=== PATIENT | female | born 1955 | race Caucasian/White ===

== ENCOUNTER 2017-04-29 04:28 | Emergency (ER) | payer OTHER ==
[~2017-04-29] VITALS: Ht 162.6 cm; Wt 99.2 kg
[~2017-04-29 04:28] MED LIST: FLEXERIL10 MG PO; LEVOTHYROXINE; LEVOTHYROXINE150 MCG PO; MOTRIN600 MG PO; NAPROXEN500 MG PO; PROZAC; PROZAC20 MG PO; SIMVASTATIN20 MG PO
[2017-04-29] MEDS ORDERED: KEFLEX500 MG PO (05:07)
[2017-04-29 05:16] VITALS: BP 159/66
== END 2017-04-29 05:17 | disposition home or self-care (01) ==
LOC: EME 04:28
DX: S50.812A Abrasion of left forearm, initial encounter (principal); L03.114 Cellulitis of left upper limb; X58.XXXA Exposure to other specified factors, initial encounter; E78.5 Hyperlipidemia, unspecified; Z88.0 Allergy status to penicillin; F17.200 Nicotine dependence, unspecified, uncomplicated
CPT/HCPCS: 99281; 99283

== ENCOUNTER 2017-05-03 00:14 | Emergency (ER) | payer OTHER ==
[~2017-05-03] VITALS: Ht 162.6 cm; Wt 98.8 kg
[~2017-05-03 00:14] MED LIST changes: +KEFLEX500 MG PO
[2017-05-03] MEDS ORDERED: TRIAMCINOLONE A15 GM TP (00:55)
[2017-05-03] MEDS ORDERED: BENADRYL50 MG PO (00:55)
[2017-05-03 01:22] VITALS: BP 149/72
== END 2017-05-03 01:22 | disposition home or self-care (01) ==
LOC: EME 00:14
DX: L25.9 Unspecified contact dermatitis, unspecified cause (principal); T78.40XA Allergy, unspecified, initial encounter; E78.5 Hyperlipidemia, unspecified; E03.9 Hypothyroidism, unspecified; F17.200 Nicotine dependence, unspecified, uncomplicated
CPT/HCPCS: 99281; 99283